=== PATIENT | female | born 1965 | race Caucasian/White ===

== ENCOUNTER 2023-09-24 09:35 | Outpatient (AMB) | payer OTHER, SELFPAY ==
--- NOTE | 2023-09-24 09:45 | A.OFFPC_ITS ---
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 Denies chest pain, shortness of breath. would like to get off medication. not checking BP at home. Walking daily. 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 Follows with breast center twice a year, Dr Murphy. UTD mammo. Every november Mammo: Nov 2022 DXA 04/2021-osteopenia. On calcium and vitamin D Colonoscopy 05/[address] Guzman. 5 year repeat recommended ROS CONSTITUTIONAL: Denies weight loss, fever and chills. HEENT: Denies changes in vision and hearing. RESPIRATORY: Denies SOB and cough. CV: Denies palpitations and CP GI: Denies abdominal pain, nausea, vomiting and diarrhea. : Denies dysuria and urinary frequency. MSK: Denies new myalgia and joint pain. SKIN: Denies rash and pruritus. NEUROLOGICAL: Denies headache PSYCHIATRIC: Denies recent changes in mood. PHYSICAL EXAM: GENERAL: Alert and oriented x 3. NAD EYES: EOMI. Anicteric. HENT: Moist mucous membranes. No scleral icterus. No cervical lymphadenopathy. LUNGS: Clear to auscultation bilaterally. CARDIOVASCULAR: Regular rate and rhythm. No murmur. No JVD. ABDOMEN: Soft, non-tender +bs EXTREMITIES: No edema. Non-tender. SKIN: No rashes or lesions. Warm. NEUROLOGIC: No focal neurological deficits. CN II-XII grossly intact PSYCHIATRIC: Cooperative. Appropriate mood and affect [facility] Medical History (Updated 09/24/23 @ 10:48 by Reina Marvin MD) Breast cancer GERD (gastroesophageal reflux disease) HTN (hypertension) Surgical History (Updated 09/24/23 @ 09:58 by Mercedes Proctor CMA) H/O mastectomy Family History (Updated 09/24/23 @ 09:59 by Mercedes Proctor CMA) Mother Hypercholesteremia Diabetes Cardiovascular disease Father Cardiovascular disease Social History Housing: House Patient Tobacco Use Status: Former Tobacco user Cigarette Packs Per Day: 1 Years Smoked: 20 e-Cigarette/Vaping Use: Never Used Second Hand Smoke Exposure: No service: No Current occupational status: employed 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 1. Little interest or pleasure in doing things: not at all 2. Feeling down, depressed, or hopeless: not at all 3. Trouble falling or staying asleep, or sleeping too much: not at all 4. Feeling tired or having little energy: not at all 5. Poor appetite or overeating: not at all 6. Feeling bad about yourself - or that you are a failure or have let yourself or your family down: not at all 7. Trouble concentrating on things, such as reading the newspaper or watching television: not at all 8. Moving or speaking so slowly that other people could have noticed. Or the opposite - being so fidgety or restless that you have been moving around a lot more than usual: not at all 9. Thoughts that you would be better off or of hurting yourself in some way: not at all Total score: 0 Depression Screening Interpretation: Negative Depression Screening Done: Yes 59684 - PHQ-9 Billing: Yes Source: Developed by Drs. Jude Johnson, Codi Wang, Kalen Herbert and colleagues, with an educational delfino from [employer]. Thrive Questionnaire Date Thrive assessed: 09/24/23 I am a: Patient What is your living situation today?: I have a steady place to live Within the past 12 months, did the food you bought not last and you didn't have the money to get more?: Never true Within the past 12 months, did you worry whether your food would run out before you got money to buy more?: Never true Do you have trouble paying for medicines?: No Do you have trouble getting transportation to medical appointments?: No Do you have trouble paying your heating and electricity bill?: No Do you have trouble taking care of your child, family member or friend?: No Do you have trouble with day-to-day activities such as bathing, preparing meals, shopping, managing finances, etc.?: No Are you currently unemployed and looking for a job?: No Are you interested in more education?: No Please select the resources that you would like help with: None Currently or been in a relationship where the following occur: No concerns reported THRIVE Score: 0 AUDIT C Alcohol Use Questionnaire (AUDIT-C) 1. How often do you have a drink containing alcohol?: Monthly or less 2. How many drinks containing alcohol do you have on a typical day when you are drinking?: 1 or 2 3. How often do you have six or more drinks on one occasion?: Never Total Score: 1 RUTH-7 AMB Questionnaire RUTH-7 Date RUTH - 7 assessed: 09/24/23 Feeling nervous, anxious, or on edge: 0 = Not at all Not being able to stop or control worryin = Not at all Worrying too much about different things: 0 = Not at all Trouble relaxin = Not at all Being so restless that it is hard to sit still: 0 = Not at all Becoming easily annoyed or irritable: 0 = Not at all Feeling afraid as if something awful might happen: 0 = Not at all Total RUTH-7 score (0-4 normal; 5-9 mild; 10-14 moderate; 15-21 severe): 0 Source: Developed by Drs. Jude Johnson, Codi Wang, Kalen Herbert and colleagues, with an educational delfino from [employer]. RUTH-7 Assessment Billing RUTH-7 Assessment Tool: RUTH-7 Assessment 90110 Physical exam (Primary Care) Vital Signs: Last Vital Signs Temp 98.1 F 09/24/23 09:53 Pulse 77 09/24/23 09:53 Resp 12 09/24/23 09:53 BP 136/84 09/24/23 09:53 Pulse Ox 97 09/24/23 09:53 Oxygen Delivery Method Room Air 09/24/23 09:53 BMI result Body Mass Index 28.9 Tobacco/Smoking Status: Tobacco use Status Tobacco use date assessed 09/24/23 09/24/23 10:00 Patient Tobacco Use Status Former Tobacco user 09/24/23 10:00 e-Cigarette/Vaping Use Never Used 09/24/23 10:00 PHQ-9: PHQ-9 Score PHQ-9: Total score 0 09/24/23 10:12 Depression Screening Interpretation: Negative Thrive Assessment: Date of Thrive Assessment Date Thrive assessed 09/24/23 09/24/23 10:00 Currently or been in a relationship where the following occur: No concerns reported Assessment and Plan Assessment & Plan (1) History of breast cancer: Code(s): Z85.3 - Personal history of malignant neoplasm of breast Plan: continue follow up per breast center. Mammo order printed and handed to patient for Emerging Threats appt (2) TAMMY (obstructive sleep apnea): Code(s): G47.33 - Obstructive sleep apnea (adult) (pediatric) Plan: Never received cpap from sleep medicine. Doing weight loss (3) HTN (hypertension): Code(s): I10 - Essential (primary) hypertension Qualifiers: Hypertension type: primary hypertension Qualified Code(s): I10 - Essential (primary) hypertension Plan: well controlled on current medication. (4) GERD (gastroesophageal reflux disease): Code(s): K21.9 - Gastro-esophageal reflux disease without esophagitis Qualifiers: Esophagitis presence: esophagitis presence not specified Qualified Code(s): K21.9 - Gastro-esophageal reflux disease without esophagitis Plan: well controlled on PPI which she requires for symptom management Orders: Orders Comprehensive Met. Panel Today G47.33 - Obstructive sleep apnea (adult) (pediatric), I10 - Essential (primary) hypertension, K21.9 - Gastro-esophageal reflux disease without esophagitis, R73.09 - Other abnormal glucose, Z13.0 - Encounter for screening for diseases of the blood and blood-forming organs and certain disorders involving the immune mechanism, Z13.220 - Encounter for screening for lipoid disorders, Z85.3 - Personal history of malignant neoplasm of breast TSH reflex Free T4 Today G47.33 - Obstructive sleep apnea (adult) (pediatric), I10 - Essential (primary) hypertension, K21.9 - Gastro-esophageal reflux disease without esophagitis, R73.09 - Other abnormal glucose, Z13.0 - Encounter for screening for diseases of the blood and blood-forming organs and certain disorders involving the immune mechanism, Z13.220 - Encounter for screening for lipoid disorders, Z85.3 - Personal history of malignant neoplasm of breast MM screening mammo BI Today Z12.31 - Encounter for screening mammogram for malignant neoplasm of breast Hemoglobin A1c Today G47.33 - Obstructive sleep apnea (adult) (pediatric), I10 - Essential (primary) hypertension, K21.9 - Gastro-esophageal reflux disease without esophagitis, R73.09 - Other abnormal glucose, Z13.0 - Encounter for screening for diseases of the blood and blood-forming organs and certain disorders involving the immune mechanism, Z13.220 - Encounter for screening for lipoid disorders, Z85.3 - Personal history of malignant neoplasm of breast Complete Blood Count Auto Diff Today G47.33 - Obstructive sleep apnea (adult) (pediatric), I10 - Essential (primary) hypertension, K21.9 - Gastro-esophageal reflux disease without esophagitis, R73.09 - Other abnormal glucose, Z13.0 - Encounter for screening for diseases of the blood and blood-forming organs and certain disorders involving the immune mechanism, Z13.220 - Encounter for screening for lipoid disorders, Z85.3 - Personal history of malignant neoplasm of breast Lipid Panel Today G47.33 - Obstructive sleep apnea (adult) (pediatric), I10 - Essential (primary) hypertension, K21.9 - Gastro-esophageal reflux disease without esophagitis, R73.09 - Other abnormal glucose, Z13.0 - Encounter for screening for diseases of the blood and blood-forming organs and certain disorders involving the immune mechanism, Z13.220 - Encounter for screening for lipoid disorders, Z85.3 - Personal history of malignant neoplasm of breast Medications: New lisinopril 10 mg PO DAILY 90 tabs 3RF 90 days omeprazole 20 mg PO DAILY 90 caps 3RF 90 days Coding Level of Care Code Est Pt Level 4 (42635) Complex EM visit Add On G2211 Diagnoses History of breast cancer Z85.3 TAMMY (obstructive sleep apnea) G47.33 Primary hypertension I10 Hypertension type: primary hypertension Gastroesophageal reflux disease, unspecified whether esophagitis present K21.9 Esophagitis presence: esophagitis presence not specified Additional Codes RUTH-7 Assessment Billing - RUTH-7 Assessment Tool: RUTH-7 Assessment 33052 ([id number])
[2023-09-24 09:53] VITALS: BP 136/84; PULSE 77; RESP 12; TEMP 36.7; O2SAT 97; BMI 28.9
== END 2023-09-24 10:34 | disposition home or self-care (01) ==
PROVIDERS: PCP Internal Medicine; Visit Provider Internal Medicine
DX: Z85.3 Personal history of malignant neoplasm of breast (principal); G47.33 Obstructive sleep apnea (adult) (pediatric); I10 Essential (primary) hypertension; K21.9 Gastro-esophageal reflux disease without esophagitis
CPT/HCPCS: 99214

== ENCOUNTER 2024-06-20 14:15 | Outpatient (AMB) | payer OTHER, SELFPAY ==
--- NOTE | 2024-06-20 14:22 | A.OFFPC_ITS ---
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 She presented to hospital with c/o work finding difficulty, seizure concern. Prior to hospitalization had underwent biopsy for a suspicious mass on imaging. Pathology returned during the hospitalization c/w glioblastoma. Neurosurgery was consulted and did not recommend surgical intervention. Neurolog y was consulted for seizure like activity. They increased her Keppra from 500mg twice daily to 750mg twice daily. Medical oncology was consulted who recommended outpatient follow up. Discharged on decadron and increased keppra. Neuro: Glioblastoma WHO grade [address] Hughes. Non surgical candidate. Following with Dr Wright -has 8 more [address] treatments and Dr Monzon for chemotherapy. Last chemotherapy will be June 30. Goal is to shrink and monitor. Plan for 2 week post treatment MRI. She has been tolerating treatment fairly well. She does feel some fatigue from the chemotherapy. No interval seizures. She is tapering down on the steroids and will stop in the near future. CV: on lisinopril 10mg daily. She would like to try off the medications. GI: Currently off omeprazole 20mg daily and without symptoms. 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 Follows with breast center twice a year, Dr Murphy. UTD mammo. Every november Mammo: Nov 2023 DXA 04/2021-osteopenia. On calcium and vitamin D Colonoscopy 05/[address] Guzman. 5 year repeat recommended ROS CONSTITUTIONAL: Denies weight loss, fever and chills. HEENT: Denies changes in vision and hearing. RESPIRATORY: Denies SOB and cough. CV: Denies palpitations and CP GI: Denies abdominal pain, nausea, vomiting and diarrhea. : Denies dysuria and urinary frequency. MSK: Denies new myalgia and joint pain. SKIN: Denies rash and pruritus. NEUROLOGICAL: Denies headache PSYCHIATRIC: Denies recent changes in mood. PHYSICAL EXAM: GENERAL: Alert and oriented x 3. NAD EYES: EOMI. Anicteric. HENT: Moist mucous membranes. No scleral icterus. No cervical lymphadenopathy. LUNGS: Clear to auscultation bilaterally. CARDIOVASCULAR: Regular rate and rhythm. No murmur. No JVD. ABDOMEN: Soft, non-tender +bs EXTREMITIES: No edema. Non-tender. SKIN: No rashes or lesions. Warm. NEUROLOGIC: No focal neurological deficits. CN II-XII grossly intact PSYCHIATRIC: Cooperative. 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 1. Little interest or pleasure in doing things: not at all 2. Feeling down, depressed, or hopeless: not at all 3. Trouble falling or staying asleep, or sleeping too much: not at all 4. Feeling tired or having little energy: not at all 5. Poor appetite or overeating: not at all 6. Feeling bad about yourself - or that you are a failure or have let yourself or your family down: not at all 7. Trouble concentrating on things, such as reading the newspaper or watching television: not at all 8. Moving or speaking so slowly that other people could have noticed. Or the opposite - being so fidgety or restless that you have been moving around a lot more than usual: not at all 9. Thoughts that you would be better off or of hurting yourself in some way: not at all Total score: 0 Depression Screening Interpretation: Negative Depression Screening Done: Yes 39522 - PHQ-9 Billing: Yes Source: Developed by Drs. Jude Johnson, Codi Wang, Kalen Herbert and colleagues, with an educational delfino from [employer]. Thrive Questionnaire Date Thrive assessed: 06/20/24 I am a: Patient What is your living situation today?: I have a steady place to live Within the past 12 months, did the food you bought not last and you didn't have the money to get more?: Never true Within the past 12 months, did you worry whether your food would run out before you got money to buy more?: Never true Do you have trouble paying for medicines?: No Do you have trouble getting transportation to medical appointments?: No Do you have trouble paying your heating and electricity bill?: No Do you have trouble taking care of your child, family member or friend?: No Do you have trouble with day-to-day activities such as bathing, preparing meals, shopping, managing finances, etc.?: No Are you currently unemployed and looking for a job?: No Are you interested in more education?: No Please select the resources that you would like help with: None Currently or been in a relationship where the following occur: No concerns reported THRIVE Score: 0 AUDIT C Alcohol Use Questionnaire (AUDIT-C) 1. How often do you have a drink containing alcohol?: Never 3. How often do you have six or more drinks on one occasion?: Never Total Score: 0 RUTH-7 AMB Questionnaire RUTH-7 Date RUTH - 7 assessed: 06/20/24 Feeling nervous, anxious, or on edge: 0 = Not at all Not being able to stop or control worryin = Not at all Worrying too much about different things: 0 = Not at all Trouble relaxin = Not at all Being so restless that it is hard to sit still: 0 = Not at all Becoming easily annoyed or irritable: 0 = Not at all Feeling afraid as if something awful might happen: 0 = Not at all Total RUTH-7 score (0-4 normal; 5-9 mild; 10-14 moderate; 15-21 severe): 0 Source: Developed by Drs. Jude Johnson, Codi Wang, Kalen Herbert and colleagues, with an educational delfino from [employer]. RUTH-7 Assessment Billing RUTH-7 Assessment Tool: RUTH-7 Assessment 21828 Physical exam (Primary Care) Vital Signs: Last Vital Signs Pulse 95 06/20/24 14:26 BP 111/62 06/20/24 14:26 Pulse Ox 96 06/20/24 14:26 Oxygen Delivery Method Room Air 06/20/24 14:26 BMI result Body Mass Index 28.4 Tobacco/Smoking Status: Tobacco use Status Tobacco use date assessed 06/20/24 06/20/24 14:33 Patient Tobacco Use Status Former Tobacco user 06/20/24 14:23 e-Cigarette/Vaping Use Never Used 06/20/24 14:23 PHQ-9: PHQ-9 Score PHQ-9: Total score 0 06/21/24 09:36 Depression Screening Interpretation: Negative Thrive Assessment: Date of Thrive Assessment Date Thrive assessed 06/20/24 06/20/24 16:39 Currently or been in a relationship where the following occur: No concerns reported Coding Level of Care Code Est Pt Level 5 (18143) Diagnoses Glioblastoma C71.9 Seizure R56.9 TAMMY (obstructive sleep apnea) G47.33 Gastroesophageal reflux disease, unspecified whether esophagitis present K21.9 Esophagitis presence: esophagitis presence not specified Primary hypertension I10 Hypertension type: primary hypertension Additional Codes RUTH-7 Assessment Billing - RUTH-7 Assessment Tool: RUTH-7 Assessment 81692 ([id number]) PHQ-9 - 90937 - PHQ-9 Billing: Yes ([id number]) Time Spent (min) 50 Assessment & Plan Assessment & Plan (1) Glioblastoma: Code(s): C71.9 - Malignant neoplasm of brain, unspecified Category: Medical (2) Seizure: Code(s): R56.9 - Unspecified convulsions Category: Medical (3) TAMMY (obstructive sleep apnea): Code(s): G47.33 - Obstructive sleep apnea (adult) (pediatric) Category: Medical (4) GERD (gastroesophageal reflux disease): Code(s): K21.9 - Gastro-esophageal reflux disease without esophagitis Category: Medical Qualifiers: Esophagitis presence: esophagitis presence not specified Qualified Code(s): K21.9 - Gastro-esophageal reflux disease without esophagitis (5) HTN (hypertension): Code(s): I10 - Essential (primary) hypertension Category: Medical Qualifiers: Hypertension type: primary hypertension Qualified Code(s): I10 - Essential (primary) hypertension Plan Glioblastoma. Hospitalization post biopsy reviewed. Continue follow up radiation oncology, oncology Continue keppra for seizure prophlyaxis Hypertension-well controlled. She will trial off lisinopril, monitor home BP and return in 4-6 weeks for recheck Currently GERD stable off PPI
[2024-06-20 14:26] VITALS: BP 111/62; PULSE 95; O2SAT 96; BMI 28.4
--- OUTSIDE RECORDS SUMMARY | 2024-06-20 17:30 | XMS_ITS | Clinical Summary ---
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 0 Active omeprazole (PriLOSEC) 20 MG capsule Take 20 mg by mouth daily. 0 Active vitamin D3 (VITAMIN D3) 1000 units tablet Take 1,000 Units by mouth daily. 0 Active Calcium-Vitamin D ([employer] CALCIUM-600/VIT D PO) Take by mouth daily. 0 Active Loratadine (CLARITIN) 10 MG CAPS Take by mouth as needed. 0 Active Social History Tobacco Use Types Packs/Day Years Used Date Smoking Tobacco: Former Smokeless Tobacco: Never Alcohol Use Standard Drinks/Week Comments Yes 0 (1 standard drink = 0.6 oz pur e alcohol) socially Sex and Gender Information Value Date Recorded Sex Assigned at Not on file Gender Identity Not on file Sexual Orientation Not on file Last Filed Vital Signs Vital Sign Reading Time Taken Comments Blood Pressure 129/86 12/29/2018 10:54 AM EDT Pulse 79 12/29/2018 10:54 AM EDT Temperature 36.4 ??C (97.6 ??F) 12/29/2018 10:54 AM E DT Respiratory Rate - - Oxygen Saturation - - Inhaled Oxygen Concentration - - Weight 75.1 kg (165 lb 9.6 oz) 12/29/2018 10:54 AM EDT Height 156.2 cm (5' 1.5 ) 12/29/2018 10:54 AM ED T Body Mass Index 30.78 12/29/2018 10:54 AM EDT Plan of Treatment Health Maintenance Due Date Last Done Comments Hepatitis C Screening 1965 Depression Screening 1975 BMI Counseling 05/21/1981 Preventative Health Evaluation 05/21/1981 DTap / Tdap / Td (1 - Tdap) 05/21/1982 Cervical Cancer Screening (Pap Smear) 05/21/1984 Colon Cancer Screening (Colonoscopy) 05/21/2008 Breast Cancer Screening (Mammogram) 05/21/2013 COVID-19 Vaccine (3 - 2023-2 5 season) 2023 07/19/2020, 06/27/2020 Influenza Vaccine (#1) 2023 2, 02/12/2016 RSV Adult > 60+ Yrs or (1 - 1-dose 75+ series) 05/21/2038 Shingrix-Zoster Vaccine Completed 03/23/19, 12/15/2021 Hepatitis B Vaccines Aged Out No long er eligible based on patient's age to complete this topic Pneumococcal Vaccine Aged Out No long er eligible based on patient's age to complete this topic RSV Ped < 20 months Aged Out No longe r eligible based on patient's age to complete this topic
== END 2024-06-20 14:55 | disposition home or self-care (01) ==
LOC: HO.HMCFM 14:15
PROVIDERS: PCP Internal Medicine; Visit Provider Internal Medicine
DX: R56.9 Unspecified convulsions (principal); C71.9 Malignant neoplasm of brain, unspecified; G47.33 Obstructive sleep apnea (adult) (pediatric); K21.9 Gastro-esophageal reflux disease without esophagitis; I10 Essential (primary) hypertension

== ENCOUNTER → 2024-06-20 14:15 | Outpatient (BNVA) | payer OTHER, SELFPAY | PROVIDERS: PCP Internal Medicine; Visit Provider Internal Medicine | DX: C71.9 Malignant neoplasm of brain, unspecified (principal); R56.9 Unspecified convulsions; G47.33 Obstructive sleep apnea (adult) (pediatric); K21.9 Gastro-esophageal reflux disease without esophagitis; I10 Essential (primary) hypertension | CPT/HCPCS: 96127 ==

== ENCOUNTER 2024-08-15 15:47 | Outpatient (AMB) | payer OTHER, SELFPAY ==
--- NOTE | 2024-08-15 15:55 | MHC.PC.OV ---
Vital Signs 08/15/24 16:04 Height 4 ft 11.5 in Weight 152 lb 2 oz BMI 30.2 Respiration 12 Pulse 74 Pulse Source Pulse Oximeter Temp 98.6 F Temp Source Temporal Artery Scan Intake Visit Reasons: BP check Intake Note: Sanya presents in the office today for a blood pressure check. Allergies No Known Allergies Allergy (Verified 08/15/24 16:07) Tobacco use date assessed: 08/15/24 Dental Screening Dental Screen Date: 08/15/24 Did you have a dental visit in the last 12 months?: Yes Did you have a dental problem in the last 6 months where you did not have access to dental care?: No Was dental information given to patient?: Patient has dentist HPI HPI Comments History of Present Illness Details The patient is a 59 year old female with a past medical history of hypertension, seasonal allergies, angiosarcoma of the breast, GERD, TAMMY on cpap presenting for BP follow up CV: She was on lisinopril 10mg daily wanted to try off the medication. She stopped it but BP increased to 140s/150s so she restarted it. On the medication she is 110s. We will half the dose. The patient was hospitalized from Apr 23 to Apr 25 2024 at [facility]. She presented to hospital with c/o work finding difficulty, seizure concern. Prior to hospitalization had underwent biopsy for a suspicious mass on imaging. Pathology returned during the hospitalization c/w glioblastoma. Neurosurgery was consulted and did not recommend surgical intervention. Neurology was consulted for seizure like activity. They increased her Keppra from 500mg twice daily to 750mg twice daily. Medical oncology was consulted who recommended outpatient follow up. Discharged on decadron and increased keppra. Neuro: She has had interval seizure. Keppra increased to 1000mg twice daily. 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 Non surgical candidate. Following with Dr Wright - radiation treatments and Dr Monzon for chemotherapy. Goal is to shrink and monitor. GI: Currently off omeprazole 20mg daily and without symptoms. 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 Follows with breast center twice a year, Dr Murphy. UTD mammo. Every november Mammo: Nov 2023 DXA 04/2021-osteopenia. On calcium and vitamin D Colonoscopy 05/[address] Guzman. 5 year repeat recommended ROS CONSTITUTIONAL: Denies weight loss, fever and chills. HEENT: Denies changes in vision and hearing. RESPIRATORY: Denies SOB and cough. CV: Denies palpitations and CP GI: Denies abdominal pain, nausea, vomiting and diarrhea. : Denies dysuria and urinary frequency. MSK: Denies new myalgia and joint pain. SKIN: Denies rash and pruritus. NEUROLOGICAL: Denies headache PSYCHIATRIC: Denies recent changes in mood. PHYSICAL EXAM: GENERAL: Alert and oriented x 3. NAD EYES: EOMI. Anicteric. HENT: Moist mucous membranes. No scleral icterus. No cervical lymphadenopathy. LUNGS: Clear to auscultation bilaterally. CARDIOVASCULAR: Regular rate and rhythm. No murmur. No JVD. ABDOMEN: Soft, non-tender +bs EXTREMITIES: No edema. Non-tender. SKIN: No rashes or lesions. Warm. NEUROLOGIC: No focal neurological deficits. CN II-XII grossly intact PSYCHIATRIC: Cooperative. 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 3. Trouble falling or staying asleep, or sleeping too much: not at all 15025 - PHQ-9 Billing: Patient declined-do not bill Source: Developed by Drs. Jude Johnson, Codi B.Kalen Clark and colleagues, with an educational delfino from [employer]. Thrive Questionnaire Date Thrive assessed: 08/15/24 I am a: Patient What is your living situation today?: I have a steady place to live Within the past 12 months, did the food you bought not last and you didn't have the money to get more?: Never true Within the past 12 months, did you worry whether your food would run out before you got money to buy more?: Never true Do you have trouble paying for medicines?: No Do you have trouble getting transportation to medical appointments?: No Do you have trouble paying your heating and electricity bill?: No Do you have trouble taking care of your child, family member or friend?: No Do you have trouble with day-to-day activities such as bathing, preparing meals, shopping, managing finances, etc.?: No Are you currently unemployed and looking for a job?: No Are you interested in more education?: No Please select the resources that you would like help with: None THRIVE Score: 0 AUDIT C Alcohol Use Questionnaire (AUDIT-C) 1. How often do you have a drink containing alcohol?: Monthly or less 2. How many drinks containing alcohol do you have on a typical day when you are drinking?: 1 or 2 3. How often do you have six or more drinks on one occasion?: Never Total Score: 1 RUTH-7 AMB Questionnaire RUTH-7 Date RUTH - 7 assessed: 06/20/24 Source: Developed by Drs. Jude Johnson, Kalen Roberts and colleagues, with an educational delfino from [employer]. Physical exam (Primary Care) Vital Signs: Last Vital Signs Temp 98.6 F 08/15/24 16:04 Pulse 74 08/15/24 16:04 Resp 12 08/15/24 16:04 BMI result Body Mass Index 30.2 Tobacco/Smoking Status: Tobacco use Status Tobacco use date assessed 08/15/24 08/15/24 16:10 Patient Tobacco Use Status Former Tobacco user 08/15/24 16:08 e-Cigarette/Vaping Use Never Used 08/15/24 16:08 Thrive Assessment: Date of Thrive Assessment Date Thrive assessed 08/15/24 08/15/24 16:10 Coding Level of Care Code Est Pt Level 4 (50002) Diagnoses Primary hypertension I10 Hypertension type: primary hypertension Glioblastoma C71.9 Seizure R56.9 Assessment & Plan Assessment & Plan (1) HTN (hypertension): Code(s): I10 - Essential (primary) hypertension Category: Medical Qualifiers: Hypertension type: primary hypertension Qualified Code(s): I10 - Essential (primary) hypertension (2) Glioblastoma: Code(s): C71.9 - Malignant neoplasm of brain, unspecified Category: Medical (3) Seizure: Code(s): R56.9 - Unspecified convulsions Category: Medical Plan HTN-decrease lisinopril to 5mg daily. Low sodium diet Glioblastoma-interval seizure. Keppra increased She will follow up in 3 months for follow up, labs Medications: New lisinopril 5 mg PO DAILY 90 tabs 3RF Discontinued lisinopril Discontinued Reason: Doctor's Order 10 mg PO DAILY 90 days 90 tabs 3RF
[2024-08-15 16:04] VITALS: PULSE 74; RESP 12; TEMP 37; BMI 30.2
--- OUTSIDE RECORDS SUMMARY | 2024-08-15 18:46 | XMS_ITS | Clinical Summary ---
Author Organization [facility] Address [address] [place] [address] Care Team Providers Care Cable Technician Name Role Phone Unavailable Primary Care Provider [...] 5 season) 2023 07/19/2020, 06/27/2020 Influenza Vaccine (Season Ended) 2024 03/03/2022, 02/12/2016 RSV Adult > 60+ Yrs or [...]
== END 2024-08-15 16:13 | disposition home or self-care (01) ==
LOC: HO.HMCFM 15:48
PROVIDERS: PCP Internal Medicine; Visit Provider Internal Medicine
DX: I10 Essential (primary) hypertension (principal); C71.9 Malignant neoplasm of brain, unspecified; R56.9 Unspecified convulsions

== ENCOUNTER → 2024-08-15 15:47 | Outpatient (BNVA) | payer OTHER, SELFPAY | PROVIDERS: PCP Internal Medicine; Visit Provider Internal Medicine ==

== ENCOUNTER 2024-11-10 10:49 | Outpatient (AMB) | payer OTHER, SELFPAY ==
[2024-11-10 10:55] VITALS: BP 118/86; PULSE 99; RESP 14; TEMP 36.8; O2SAT 98; BMI 33.2
--- NOTE | 2024-11-10 10:55 | MHC.PC.OV ---
Vital Signs 11/10/24 10:55 Height 4 ft 11.5 in Weight 167 lb 6 oz BMI 33.2 BP 118/86 Blood Pressure Location Lt brachial Position Sitting Respiration 14 Pulse 99 Pulse Source Pulse Oximeter Temp 98.2 F Temp Source Oral Pulse Oximetry (%) 98 Oxygen Delivery Method Room Air Intake Visit Reasons: bilateral LE edema Intake Note: Bilateral leg/ foot edema Front Tender Required: No Allergies No Known Allergies Allergy (Verified 11/10/24 10:57) Tobacco use date assessed: 08/15/24 Dental Screening Dental Screen Date: 08/15/24 HPI HPI Comments History of Present Illness Details The patient is a 59 year old female with a past medical history of glioblastoma, hypertension, seasonal allergies, angiosarcoma of the breast, GERD, TAMMY on cpap presenting for LE swelling Patient & VNA note swelling of the bilateral legs and feet for the past week. No shortness of breath, chest pain. No diet changes, no new medications. Continues on steroids but lower dose than previously. CV: On lisinopril 5mg daily. see above Neuro: She has had interval seizure. Keppra 1250mg twice daily. 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 Non surgical candidate. Following with Dr Wright - radiation treatments and Dr Monzon for chemotherapy. Goal is to shrink and monitor. GI: Currently off omeprazole 20mg daily and without symptoms. Heme/Onc: Glioblastoma as above. 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 Follows with breast center twice a year, Dr Murphy. UTD mammo. Every november Mammo: Nov 2023 DXA 04/2021-osteopenia. On calcium and vitamin D Colonoscopy 05/[address] Guzman. 5 year repeat recommended ROS see HPI PHYSICAL EXAM: GENERAL: Alert and oriented x 3. NAD EYES: EOMI. Anicteric. HENT: Moist mucous membranes. No scleral icterus. No cervical lymphadenopathy. LUNGS: Clear to auscultation bilaterally. CARDIOVASCULAR: Regular rate and rhythm. No murmur. No JVD. ABDOMEN: Soft, non-tender +bs EXTREMITIES: bilateral pitting LE edema SKIN: No rashes or lesions. Warm. NEUROLOGIC: No focal neurological deficits. CN II-XII grossly intact PSYCHIATRIC: Cooperative. 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 occupational exposures/hazards: No Cognitive needs: No Hearing needs: No Vision needs: No Questionnaire Thrive Questionnaire Date Thrive assessed: 06/20/24 I am a: Patient What is your living situation today?: I have a steady place to live Within the past 12 months, did the food you bought not last and you didn't have the money to get more?: Never true Within the past 12 months, did you worry whether your food would run out before you got money to buy more?: Never true Do you have trouble paying for medicines?: No Do you have trouble getting transportation to medical appointments?: No Do you have trouble paying your heating and electricity bill?: No Do you have trouble taking care of your child, family member or friend?: No Do you have trouble with day-to-day activities such as bathing, preparing meals, shopping, managing finances, etc.?: No Are you currently unemployed and looking for a job?: No Are you interested in more education?: No Please select the resources that you would like help with: None THRIVE Score: 0 RUTH-7 AMB Questionnaire RUTH-7 Date RUTH - 7 assessed: 06/20/24 Source: Developed by Drs. Jude Johnson, Codi Wang, Kalen Herbert and colleagues, with an educational delfino from [employer] Physical exam (Primary Care) Vital Signs: Last Vital Signs Temp 98.2 F 11/10/24 10:55 Pulse 99 11/10/24 10:55 Resp 14 11/10/24 10:55 BP 118/86 11/10/24 10:55 Pulse Ox 98 11/10/24 10:55 Oxygen Delivery Method Room Air 11/10/24 10:55 BMI result Body Mass Index 33.2 Tobacco/Smoking Status: Tobacco use Status Tobacco use date assessed 08/15/24 11/10/24 10:59 Patient Tobacco Use Status Former Tobacco user 11/10/24 10:59 e-Cigarette/Vaping Use Never Used 11/10/24 10:59 Thrive Assessment: Date of Thrive Assessment Date Thrive assessed 06/20/24 11/10/24 10:59 Coding Level of Care Code Est Pt Level 4 (01987) Diagnoses Leg swelling M79.89 Type 2 diabetes mellitus without complication, unspecified whether halfway insulin use E11.9 Diabetes mellitus complication status: without complication Diabetes mellitus halfway insulin use: unspecified long term care phlebotomist insulin use status Diabetes mellitus type: type 2 Glioblastoma C71.9 Assessment & Plan Assessment & Plan (1) Leg swelling: Code(s): M79.89 - Other specified soft tissue disorders (2) Diabetes: Code(s): E11.9 - Type 2 diabetes mellitus without complications Category: Medical Qualifiers: Diabetes mellitus complication status: without complication Diabetes mellitus halfway insulin use: unspecified halfway insulin use status Diabetes mellitus type: type 2 Qualified Code(s): E11.9 - Type 2 diabetes mellitus without complications (3) Glioblastoma: Code(s): C71.9 - Malignant neoplasm of brain, unspecified Category: Medical Plan 59 y/o for LE edema No calf pain, no dyspnea Start lasix-40mg x 3 days then 20mg daily Call if persistent or worsening Medications: New furosemide (Lasix) Take 2 tab oral once daily for 3 days the take 1 tab oral once daily 100 tabs 3RF FreeStyle Lancets (lancets) 3 times daily 300 ea 3RF NS E11.9 - Type 2 diabetes mellitus without complications, Z79.4 - [facility] (current) use of insulin FreeStyle Lite Strips (blood sugar diagnostic) 3 times daily 300 ea 3RF NS E11.9 - Type 2 diabetes mellitus without complications, Z79.4 - [facility] (current) use of insulin CareFine Pen Needle (pen needle, diabetic) once daily 100 ea 3RF NS
--- OUTSIDE RECORDS SUMMARY | 2024-11-10 11:53 | XMS_ITS | Clinical Summary ---
Author Organization [facility] Address [address] [place] [address] Care Team Providers Care Gun Tester Name Role Phone Unavailable Primary Care Provider [...] 79 12/29/2018 10:54 AM EDT Temperature 36.4 C (97.6 F) 12/29/2018 10:54 AM EDT Respiratory Rate - - Oxygen Saturation - [...] Screening (Mammogram) 05/21/2013 COVID-19 Vaccine (3 - 2024-2 6 season) 2024 07/19/2020, 06/27/2020 Influenza Vaccine (#1) 2024 2, 02/12/2016 RSV Adult > 60+ Yrs [...]
== END 2024-11-10 12:23 | disposition home or self-care (01) ==
LOC: HO.HMCFM 10:49
PROVIDERS: PCP Internal Medicine; Visit Provider Internal Medicine
DX: M79.89 Other specified soft tissue disorders (principal); E11.9 Type 2 diabetes mellitus without complications; C71.9 Malignant neoplasm of brain, unspecified

== ENCOUNTER → 2024-11-10 10:49 | Outpatient (BNVA) | payer OTHER, SELFPAY | PROVIDERS: PCP Internal Medicine; Visit Provider Internal Medicine | DX: E11.9 Type 2 diabetes mellitus without complications (principal) ==

== ENCOUNTER 2024-11-16 11:20 | Outpatient (REF) | payer OTHER, SELFPAY ==
--- NOTE | ~2024-11-16 | US_ITS ---
EXAMINATION: US TRIPLEX LOWER EXTREMITY, BILATERAL CLINICAL INFORMATION: Bilateral lower extremity edema COMPARISON: None available. TECHNIQUE: Color-flow triplex imaging with spectral analysis and compression Doppler were performed on the bilateral lower extremities. FINDINGS: Respiratory variation, normal compression and augmented flow are noted throughout the bilateral lower extremities. The visualized common femoral vein, superficial femoral vein, profunda femoral vein, popliteal vein and midcalf peroneal and posterior tibial venous segments show no evidence of deep venous thrombosis bilaterally. Incidental note is made of mural calcification involving both common femoral arteries. US/US venous duplex LE BI IMPRESSION: No evidence of deep venous thrombosis involving the bilateral lower extremities. Atherosclerotic disease. Electronically signed by: Carter Gonzales MD 11/16/2024 12:33 PM EDT
--- OUTSIDE RECORDS SUMMARY | 2024-11-16 15:41 | XMS_ITS | Clinical Summary ---
Author Organization [facility] Address [address] [place] [address] Care Team Providers Care Personal Financial Counselor Name Role Phone Unavailable Primary Care Provider [...]
== END 2024-11-16 11:21 | disposition home or self-care (01) ==
LOC: HO.US 11:20
PROVIDERS: PCP Internal Medicine; Visit Provider Internal Medicine
DX: R60.0 Localized edema (principal)
CPT/HCPCS: 93970

== ENCOUNTER → 2024-11-16 11:31 | Outpatient (BNV) | payer OTHER, SELFPAY | PROVIDERS: PCP Internal Medicine; Visit Provider Radiology Diagnostic Radiology | DX: R60.0 Localized edema (principal) | CPT/HCPCS: 93970 ==

== ENCOUNTER 2024-11-21 09:03 | Outpatient (REF) | payer OTHER, SELFPAY ==
[2024-11-21 14:56] LABS: Anion Gap 15 (12-20); Blood Urea Nitrogen 16 mg/dL (9-16); Calcium 9.3 mg/dL (8.4-10.2); Carbon Dioxide 23 mmol/L (22-29); Chloride 100 mmol/L (96-108); Estimated Glomerular Filt Rate > 60; Potassium 4.3 mmol/L (3.3-5.1); Sodium 134 mmol/L (135-145)
[2024-11-21 15:02] LABS: NT Pro B Type Natriuretic Pept 140.9 pg/mL (<300)
== END 2024-11-21 09:04 | disposition home or self-care (01) ==
LOC: HO.WFDLDS 09:03
PROVIDERS: PCP Internal Medicine; Visit Provider Internal Medicine
DX: E11.9 Type 2 diabetes mellitus without complications (principal); M79.89 Other specified soft tissue disorders; R60.0 Localized edema; R56.9 Unspecified convulsions; Z79.4 Long term (current) use of insulin
CPT/HCPCS: 36415; 80048; 83036; 83880; 84443

== ENCOUNTER 2024-11-21 09:03 | Outpatient (AMB) | payer OTHER, SELFPAY ==
--- NOTE | 2024-11-21 09:13 | A.OFFPC_ITS ---
Vital Signs 11/21/24 09:17 11/21/24 09:20 Height 4 ft 11.5 in Weight 176 lb 6 oz BMI 35.0 BP 102/72 Blood Pressure Location Rt brachial Position Sitting Respiration 14 Pulse 118 H 110 H Pulse Source Pulse Oximeter Pulse Oximeter Pulse Oximetry (%) 100 Oxygen Delivery Method Room Air Intake Visit Reasons: bp follow up Intake Note: Blood pressure follow up Allergies No Known Allergies Allergy (Verified 11/21/24 09:17) Tobacco use date assessed: 08/15/24 Dental Screening Dental Screen Date: 08/15/24 HPI HPI Comments History of Present Illness Details The patient is a 59 year old female with a past medical history of glioblastoma, hypertension, seasonal allergies, angiosarcoma of the breast, GERD, TAMMY on cpap presenting for LE swelling Seen recently. Patient & VNA note swelling of the bilateral legs and feet for the past week. No shortness of breath, chest pain. No diet changes, no new medications. Continues on steroids but lower dose than previously. Placed on lasix without improvement. Bilateral us negative DVT. She started bumex 4 days ago and has noticed quite a bit of decrease in swelling. CV: On lisinopril 5mg daily. BP controlled. No chest pain, no shortness of breath Neuro: She has had interval seizure. Keppra 1250mg twice daily. 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 Non surgical candidate. Following with Dr Wright - radiation treatments and Dr Monzon for chemotherapy. Goal is to shrink and monitor. GI: Currently off omeprazole 20mg daily and without symptoms. Heme/Onc: Glioblastoma as above. 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 Follows with breast center twice a year, Dr Murphy. UTD mammo. Every november Mammo: Nov 2023 DXA 04/2021-osteopenia. On calcium and vitamin D Colonoscopy 05/[address] Guzman. 5 year repeat recommended ROS see HPI PHYSICAL EXAM: GENERAL: Alert and oriented x 3. NAD EYES: EOMI. Anicteric. HENT: Moist mucous membranes. No scleral icterus. No cervical lymphadenopathy. LUNGS: Clear to auscultation bilaterally. CARDIOVASCULAR: Regular rate and rhythm. No murmur. No JVD. ABDOMEN: Soft, non-tender +bs EXTREMITIES: Trace b/l pitting LE edema SKIN: No rashes or lesions. Warm. NEUROLOGIC: No focal neurological deficits. CN II-XII grossly intact PSYCHIATRIC: Cooperative. 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 occupational 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/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: No Cognitive needs: No Hearing needs: No Vision needs: No Questionnaire Thrive Questionnaire Date Thrive assessed: 06/20/24 I am a: Patient What is your living situation today?: I have a steady place to live Within the past 12 months, did the food you bought not last and you didn't have the money to get more?: Never true Within the past 12 months, did you worry whether your food would run out before you got money to buy more?: Never true Do you have trouble paying for medicines?: No Do you have trouble getting transportation to medical appointments?: No Do you have trouble paying your heating and electricity bill?: No Do you have trouble taking care of your child, family member or friend?: No Do you have trouble with day-to-day activities such as bathing, preparing meals, shopping, managing finances, etc.?: No Are you currently unemployed and looking for a job?: No Are you interested in more education?: No Please select the resources that you would like help with: None THRIVE Score: 0 RUTH-7 AMB Questionnaire RUTH-7 Date RUTH - 7 assessed: 06/20/24 Source: Developed by Drs. Jude Johnson, Codi Wang, Kalen Herbert and colleagues, with an educational delfino from [employer]. Physical exam (Primary Care) Vital Signs: Last Vital Signs Pulse 110 H 11/21/24 09:20 Resp 14 11/21/24 09:17 BP 102/72 11/21/24 09:17 Pulse Ox 100 11/21/24 09:17 Oxygen Delivery Method Room Air 11/21/24 09:17 BMI result Body Mass Index 35.0 Tobacco/Smoking Status: Tobacco use Status Tobacco use date assessed 08/15/24 11/21/24 09:16 Patient Tobacco Use Status Former Tobacco user 11/21/24 09:16 e-Cigarette/Vaping Use Never Used 11/21/24 09:16 Thrive Assessment: Date of Thrive Assessment Date Thrive assessed 06/20/24 11/21/24 09:16 Coding Level of Care Code Est Pt Level 4 (37651) Diagnoses Type 2 diabetes mellitus without complication, unspecified whether penitentiary insulin use E11.9 Diabetes mellitus complication status: without complication Diabetes mellitus medical case manager insulin use: unspecified penitentiary insulin use status Diabetes mellitus type: type 2 Insulin long-term use Z79.4 Seizure R56.9 Assessment & Plan Assessment & Plan (1) Diabetes: Code(s): E11.9 - Type 2 diabetes mellitus without complications Category: Medical Qualifiers: Diabetes mellitus complication status: without complication Diabetes mellitus penitentiary insulin use: unspecified medical case manager insulin use status Diabetes mellitus type: type 2 Qualified Code(s): E11.9 - Type 2 diabetes mellitus without complications (2) Insulin long-term use: Code(s): Z79.4 - care home (current) use of insulin Category: Medical (3) Seizure: Code(s): R56.9 - Unspecified convulsions Category: Medical Plan 59 year old female for follow up Her edema has improved on Lasix She has echo pending She is awaiting compression device BP is controlled. Check labs for K, Cr Orders: Orders Hemoglobin A1c 11/21/24 E11.9 - Type 2 diabetes mellitus without complications Basic Metabolic Panel 11/21/24 M79.89 - Other specified soft tissue disorders TSH reflex Free T4 11/21/24 M79.89 - Other specified soft tissue disorders NT Pro B Type Natriuretic Pept 11/21/24 M79.89 - Other specified soft tissue disorders Medications: Discontinued furosemide (Lasix) Discontinued Reason: Duplicate Take 2 tab oral once daily for 3 days the take 1 tab oral once daily 100 tabs 3RF
[2024-11-21 09:17] VITALS: BP 102/72; PULSE 118; RESP 14; O2SAT 100; BMI 35.0
[2024-11-21 09:20] VITALS: PULSE 110
== END 2024-11-21 09:43 | disposition home or self-care (01) ==
LOC: HO.HMCFM 09:04
PROVIDERS: PCP Internal Medicine; Visit Provider Internal Medicine
DX: E11.9 Type 2 diabetes mellitus without complications (principal); Z79.4 Long term (current) use of insulin; R56.9 Unspecified convulsions

== ENCOUNTER → 2024-12-21 09:02 | Outpatient (REF) | payer OTHER, SELFPAY ==
--- NOTE | 2024-12-21 09:04 | CA_ITS ---
Transthoracic Echocardiogram Patient (Last, First, Middle): Sanya Juarez A Gender: F Date of : 1965 Age: 59 Procedure Date: 12/21/2024 Procedure Type: Transthoracic Echocardiogram Location: OP Height: 152. cm Weight: 77.11 kg BSA: 1.74 m2 Heart Rate: 99 bpm BP: 110 / 70 mmHg Flanging Operator: JEISON Rothman MD: Reina Marvin MD Bad Cloth Checker: Corbin Thrasher MD Symptoms: R60.0 - Localized edema Study Quality: Fair ECG Rhythm: Tachycardia Conclusions: - 1. Low normal LV ejection fraction 50-55% with grade 1 diastolic dysfunction 2. Normal cardiac valvular Dopplers 3. Upper limits of normal ascending aortic size 4. No gross pericardial effusion Findings Left Ventricle Normal left ventricular cavity size. There is normal left ventricular wall thickness. The left ventricular systolic function is low normal. The visually estimated ejection fraction is between 50-55%. Spectral Doppler is indicative of an impaired relaxation filling pattern. E/E prime ratio is <8, consistent with normal filling pressures. Evidence suggests grade I (mild) diastolic dysfunction. There is mild septal asymmetric hypertrophy. Right Ventricle Normal right ventricular cavity size and systolic function. Atria Both atria are normal in size. Interatrial shunt cannot be excluded. Aortic Valve Normal aortic valve structure and function. There is no aortic valve stenosis. There is no aortic valve regurgitation. Mitral Valve Normal mitral valve structure and function. There is trace mitral valve regurgitation. There is no mitral valve stenosis. Pulmonic Valve The pulmonic valve is likely normal. There is trace pulmonic valve regurgitation. Tricuspid Valve Normal tricuspid valve structure. Tricuspid regurgitation envelope is inadequate for calculation of right ventricular systolic pressure. Normal right atrial pressure. Great Vessels The pulmonary artery was not well visualized. There is mild dilatation of the ascending aorta measuring 3.60 cm. Venous The inferior vena cava is normal in size and collapses greater than 50% with inspiration. Pericardium/Pleural There is no evidence of pericardial effusion. Prior Study Comparison No prior study available for comparison. Measurements 2D Linear Measurements IVSd: 1.26 0.6-0.9/0.6-1.0 cm LVIDd: 3.24 3.9-5.3/4.2-5.9 cm LVIDd Index: 1.86 2.4-3.2/2.2-3.1 cm/m2 LVIDs: 2.47 2.0-3.6 cm LVPWd: 0.94 0.7-1.1 cm LA Diam: 2.50 2.7-3.8/3.0-4.0 cm LAIDs Index: 1.44 1.5-2.3 cm/m2 LV Mass: 131.59 67-162/88-224 g LV Mass Index: 75.63 43-95/49-115 g/m2 LVOT Diam: 2.00 3.0+(-)1.3 cm 2D Systolic Function EF 4C: 50.50 >55% EF 2C: 47.70 >55% EF BiP: 49.90 >55% Mitral Valve MV Pk E: 0.49 MV PK A: 0.91 MV Decel Time: 157.00 E/A: 0.50 E'Lateral: 6.64 E'Medial: 5.22 E/E' Med: 9.40 E/E' Lat: 7.40 PHT: 46.00 MVA PHT: 4.78 Decel Stanly: 3.13 Aortic Valve AoV Pk Marquis: 1.03 AoV Mn Marquis: 0.81 AoV VTI: 0.17 AoV Pk Grad: 4.00 Aov Mn Grad: 3.00 YINKA Cont.VTI: 2.61 LVOT LVOT Pk Marquis: 0.87 LVOT Mn Marquis: 0.67 LVOT VTI: 0.14 LVOT Pk Grad: 3.00 LVOT Mn Grad: 2.00 LVOT Diam: 2.00 LVOT Area: 3.14 Diastolic Function MV Pk E: 0.49 MV Pk A: 0.91 E/A: 0.50 E'Medial: 5.22 E/E' Med: 9.40 E' Laterial: 6.64 E/E' Lat: 7.40 Right Ventricle TAPSE (mm): 14.00 TVS' Marquis: 10.10 Tricuspid Valve TR Pk Marquis: 2.20 TR Pk Grad: 19.00 Great Vessels Aorta Sinus of Valsalva: 3.70 2.0-3.5 cm Ao Asc: 3.60 2.1-3.4 cm Ao Arch: 2.80 Pulmonary Veins Pulm Vein S/D 1.30 Pulmonary Valve PV Pk Marquis: 1.28 Peak PV Grad: 7.00 Updated in Other Vendor System with Status of Final Corbin Thrasher MD electronically signed on 12/21/2024 3:55:13 PM with status of Final
--- OUTSIDE RECORDS SUMMARY | 2024-12-21 10:02 | XMS_ITS | Clinical Summary ---
Author Organization [facility] Address [address] [place] [address] Care Team Providers Care Climatologist Name Role Phone Unavailable Primary Care Provider [...]
== END ==
LOC: HO.CARD 09:02
PROVIDERS: PCP Internal Medicine; Visit Provider Internal Medicine
DX: R60.0 Localized edema (principal)
CPT/HCPCS: 93306

== ENCOUNTER → 2024-12-21 09:04 | Outpatient (BNV) | payer OTHER, SELFPAY | PROVIDERS: PCP Internal Medicine; Visit Provider Internal Medicine Cardiovascular Disease | DX: I42.2 Other hypertrophic cardiomyopathy (principal); R60.0 Localized edema | CPT/HCPCS: 93306 ==

== ENCOUNTER 2025-01-19 08:34 | Outpatient (AMB) | payer OTHER, SELFPAY ==
--- NOTE | 2025-01-19 08:36 | A.OFFPC_ITS ---
Vital Signs 01/19/25 08:41 Height 4 ft 11.5 in Weight 185 lb 8 oz BMI 36.8 BP 108/76 Blood Pressure Location Rt brachial Position Sitting Respiration 22 H Pulse 114 H Pulse Source Pulse Oximeter Temp 98.1 F Temp Source Oral Pulse Oximetry (%) 100 Oxygen Delivery Method Room Air Intake Visit Reasons: Annual PE - see comments Intake Note: Physical. 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 BP controlled. No chest pain, no shortness of breath. Ongoing LE edema Patient & VNA note swelling of the bilateral legs and feet for the past week. No shortness of breath, chest pain. No diet changes, no new medications. Continues on steroids but lower dose than previously. Placed on lasix without improvement. Bilateral us negative DVT. Mild improvement with bumex-ran out. Will trial hctz and if helpful will dc lisinopril. Neuro: No interval seizure Keppra 1250mg twice daily. 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 Non surgical candidate. Following with Dr Wright - radiation treatments and Dr Monzon for chemotherapy. Goal is to shrink and monitor. Off steroids, hoping that swelling will decrease. Needing less insulin GI: Currently off omeprazole 20mg daily and without symptoms. Heme/Onc: Glioblastoma as above. 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 Follows with breast center twice a year, Dr Murphy. UTD mammo. Every november DXA 04/2021-osteopenia. On calcium and vitamin D Colonoscopy 05/[address] Guzman. 5 year repeat recommended ROS see HPI PHYSICAL EXAM: GENERAL: Alert and oriented x 3. NAD EYES: EOMI. Anicteric. HENT: Moist mucous membranes. No scleral icterus. No cervical lymphadenopathy. LUNGS: Clear to auscultation bilaterally. CARDIOVASCULAR: Regular rate and rhythm. No murmur. No JVD. ABDOMEN: Soft, non-tender +bs EXTREMITIES: Trace b/l pitting LE edema, +pedal edema SKIN: No rashes or lesions. Warm. NEUROLOGIC: No focal neurological deficits. CN II-XII grossly intact PSYCHIATRIC: Cooperative. 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 Current occupational exposures/hazards: No Cognitive needs: No Hearing needs: No Vision needs: No Questionnaire Thrive Questionnaire Date Thrive assessed: 06/20/24 I am a: Patient What is your living situation today?: I have a steady place to live Within the past 12 months, did the food you bought not last and you didn't have the money to get more?: Never true Within the past 12 months, did you worry whether your food would run out before you got money to buy more?: Never true Do you have trouble paying for medicines?: No Do you have trouble getting transportation to medical appointments?: No Do you have trouble paying your heating and electricity bill?: No Do you have trouble taking care of your child, family member or friend?: No Do you have trouble with day-to-day activities such as bathing, preparing meals, shopping, managing finances, etc.?: No Are you currently unemployed and looking for a job?: No Are you interested in more education?: No Please select the resources that you would like help with: None THRIVE Score: 0 AUDIT C Alcohol Use Questionnaire (AUDIT-C) 1. How often do you have a drink containing alcohol?: Never 3. How often do you have six or more drinks on one occasion?: Never Total Score: 0 RUTH-7 AMB Questionnaire RUTH-7 Date RUTH - 7 assessed: 06/20/24 Source: Developed by Drs. Jude Johnson, Codi Wang, Kalen Herbert and colleagues, with an educational delfino from [employer]. Physical exam (Primary Care) Vital Signs: Last Vital Signs Temp 98.1 F 01/19/25 08:41 Pulse 114 H 01/19/25 08:41 Resp 22 H 01/19/25 08:41 BP 108/76 01/19/25 08:41 Pulse Ox 100 01/19/25 08:41 Oxygen Delivery Method Room Air 01/19/25 08:41 BMI result Body Mass Index 36.8 Tobacco/Smoking Status: Tobacco use Status Tobacco use date assessed 01/19/25 01/19/25 08:41 Patient Tobacco Use Status Former Tobacco user 01/19/25 08:47 e-Cigarette/Vaping Use Never Used 01/19/25 08:47 Thrive Assessment: Date of Thrive Assessment Date Thrive assessed 06/20/24 01/19/25 08:38 Office Procedures Flu Questionnaire Does the patient have a severe egg allergy?: No Does the patient have severe life threatening allergies?: No Does the patient have a fever or illness today?: No Has the patient ever had Guillain-[place] Syndrome?: No Has the patient ever had any past reaction to a flu shot?: No Immunizations Fluarix [id number] (PF) 45 mcg (15 mcg x 3)/0.5 mL IM syringe Performing Provider: Reina Marvin MD Performing Location[place] [facility] [facility] Administered by: Mercedes Proctor CMA on 01/19/25 09:40 Dose Route Admin Location Dispensed Lot Number Expiration Date NDC [employer] T[employer] 0.5 mL IM Right Deltoid 0.5 mL [id number] 09/04/25 22022-888-98 [employer] VIS Given Date VIS Provided VIS Publication Date 01/19/25 Single Vaccine 24 Eligibility Eligibility Date Funding Source Not C Eligible 01/19/25 Private Coding Level of Care Code Est Pt Prev Care 40-64y(84629) Diagnoses Physical exam Z00.00 Type 2 diabetes mellitus without complication, unspecified whether detention insulin use E11.9 Diabetes mellitus type: type 2 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 insulin use: unspecified detention insulin use status Diabetes mellitus complication status: without complication Primary hypertension I10 Hypertension type: primary hypertension Glioblastoma C71.9 History of breast cancer Z85.3 Seizure R56.9 Lower extremity edema R60.0 Assessment & Plan Assessment & Plan (1) Physical exam: Code(s): Z00.00 - Encounter for general adult medical examination without abnormal findings (2) Diabetes: Code(s): E11.9 - Type 2 diabetes mellitus without complications Category: Medical Qualifiers: Diabetes mellitus type: type 2 Diabetes mellitus detention insulin use: unspecified detention insulin use status Diabetes mellitus complication status: without complication Qualified Code(s): E11.9 - Type 2 diabetes mellitus without complications (3) HTN (hypertension): Code(s): I10 - Essential (primary) hypertension Category: Medical Qualifiers: Hypertension type: primary hypertension Qualified Code(s): I10 - Essential (primary) hypertension (4) Glioblastoma: Code(s): C71.9 - Malignant neoplasm of brain, unspecified Category: Medical (5) History of breast cancer: Code(s): Z85.3 - Personal history of malignant neoplasm of breast Category: Medical (6) Seizure: Code(s): R56.9 - Unspecified convulsions Category: Medical (7) Lower extremity edema: Code(s): R60.0 - Localized edema Category: Medical Plan 59 year old female presenting for CPE Interval history reviewed Preventive measures for age discussed History of breast cancer-follow up once Glioblastoma-following with oncology. Recently taken off steroids. c/w seizure prophylaxis BP is well controlled. Will trial hctz holding lisinopril Orders: Orders Comprehensive Met. Panel Today C71.9 - Malignant neoplasm of brain, unspecified, E11.9 - Type 2 diabetes mellitus without complications, I10 - Essential (primary) hypertension, K21.9 - Gastro-esophageal reflux disease without esophagitis Complete Blood Count Auto Diff Today C71.9 - Malignant neoplasm of brain, unspecified, E11.9 - Type 2 diabetes mellitus without complications, I10 - Essential (primary) hypertension, K21.9 - Gastro-esophageal reflux disease without esophagitis Lipid Panel Today C71.9 - Malignant neoplasm of brain, unspecified, E11.9 - Type 2 diabetes mellitus without complications, I10 - Essential (primary) hypertension, K21.9 - Gastro-esophageal reflux disease without esophagitis Hemoglobin A1c Today C71.9 - Malignant neoplasm of brain, unspecified, E11.9 - Type 2 diabetes mellitus without complications, I10 - Essential (primary) hypertension, K21.9 - Gastro-esophageal reflux disease without esophagitis Influenza [id number] Immunization Today Z23 - Encounter for immunization Medications: New hydrochlorothiazide 25 mg PO DAILY 90 tabs 3RF On Hold lisinopril Hold Comment: Doctor's Order 5 mg PO DAILY 90 tabs 3RF
[2025-01-19 08:41] VITALS: BP 108/76; PULSE 114; RESP 22; TEMP 36.7; O2SAT 100; BMI 36.8
--- OUTSIDE RECORDS SUMMARY | 2025-01-19 08:47 | XMS_ITS | Clinical Summary ---
Author Organization [facility] Address [address] [place] [address] Care Team Providers Care Correspondence Renew Clerk Name Role Phone Unavailable Primary Care Provider [...]
== END 2025-01-19 09:18 | disposition home or self-care (01) ==
LOC: HO.HMCFM 08:35
PROVIDERS: PCP Internal Medicine; Visit Provider Internal Medicine
DX: Z00.00 Encounter for general adult medical examination without abnormal findings (principal); E11.9 Type 2 diabetes mellitus without complications; C71.9 Malignant neoplasm of brain, unspecified; R56.9 Unspecified convulsions; I10 Essential (primary) hypertension; Z85.3 Personal history of malignant neoplasm of breast; R60.0 Localized edema; Z23 Encounter for immunization

== ENCOUNTER → 2025-01-19 08:34 | Outpatient (BNVA) | payer OTHER, SELFPAY | PROVIDERS: PCP Internal Medicine; Visit Provider Internal Medicine | DX: Z00.00 Encounter for general adult medical examination without abnormal findings (principal); Z23 Encounter for immunization; E11.9 Type 2 diabetes mellitus without complications; I10 Essential (primary) hypertension; C71.9 Malignant neoplasm of brain, unspecified; R56.9 Unspecified convulsions; R60.0 Localized edema; M85.80 Other specified disorders of bone density and structure, unspecified site; G47.33 Obstructive sleep apnea (adult) (pediatric); Z85.3 Personal history of malignant neoplasm of breast; Z79.899 Other long term (current) drug therapy; Z99.89 Dependence on other enabling machines and devices | CPT/HCPCS: 90471; 90656 ==